=== PATIENT | male | born 1990 | race Hispanic/Latino ===

== ENCOUNTER 2017-11-23 02:02 | Emergency (ER) | payer BC ==
[2017-11-23 02:19] VITALS: PULSE 80
[2017-11-23] MEDS ORDERED: Clindamycin in NS 300 MG/50 ML BAG IVPB STA (02:46)
[2017-11-23 03:31] LABS: BASO # 0.1 K/uL (0.0-0.2); BASO % 0.8 % (0.0-2.0); EOS # 0.3 K/uL (0.0-0.7); LYMPH # 3.2 K/uL (1.0-4.3); LYMPH % 36.2 % (20.0-40.0); MEAN CELL VOLUME 91.9 fl (80.0-94.0); MEAN CORPUSCULAR HEMOGLOBIN 32.9 pg (27.0-31.0); MEAN CORPUSCULAR HGB CONC 35.8 g/dL (33.0-37.0); MEAN PLATELET VOLUME 7.6 fl (7.2-11.7); MONO # 0.6 K/uL (0.0-0.8); MONO % 6.8 % (0.0-10.0); NEUT # 4.7 K/uL (1.8-7.0); NEUT % 53.2 % (50.0-75.0); NRBC % 0.1 % (0.0-0.0); RBC 4.63 Mil/uL (4.40-5.90); RED CELL DISTRIBUTION WIDTH 13.1 % (11.5-14.5); WHITE BLOOD COUNT 8.9 K/uL (4.8-10.8)
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
[2017-11-23 03:58] LABS: ALB/GLOB RATIO 1.5 (1.0-2.1); ALBUMIN 4.6 g/dL (3.5-5.0); ALT/SGPT 73 U/L (21-72); AST/SGOT 50 U/L (17-59); BLOOD UREA NITROGEN 19 mg/dl (9-20); CALCIUM 9.2 mg/dL (8.4-10.2); GFR AFRICAN-AMERICAN > 60; GFR NON-AFRICAN AMERICAN > 60
[2017-11-23 04:19] LABS: SQUAMOUS EPITHIAL < 1 /hpf (0-5); URINE BILIRUBIN NEGATIVE (NEGATIVE); URINE BLOOD NEGATIVE (NEGATIVE); URINE CLARITY CLEAR (Clear); URINE GLUCOSE (UA) NEG (Normal); URINE LEUKOCYTE ESTERASE NEG Leu/uL (Negative); URINE PROTEIN NEGATIVE (NEGATIVE); URINE UROBILINOGEN 0.2-1.0 mg/dL (0.2-1.0)
[2017-11-23 04:29] LABS: URINE COLOR LIGHT YELLOW (YELLOW)
[2017-11-23 04:50] LABS: BARBITURATES, UR NEGATIVE (NEGATIVE); BENZODIAZEPINES, UR NEGATIVE (NEGATIVE); OPIATES, UR NEGATIVE (NEGATIVE); PHENCYCLIDINE, UR NEGATIVE (NEGATIVE)
[2017-11-23 04:59] LABS: HEMOGLOBIN 15.1 g/dL (12.0-18.0)
--- NOTE | 2017-11-23 07:13 | ED PDOC ---
- Laboratory Results Result Diagrams: 11/23/17 02:55 11/23/17 02:55 - ECG O2 Sat by Pulse Oximetry: 95 Medical Decision Making Medical Decision Makinam received pending plastic surgery consult for complicated facial laceration 0841 Dr. Martinez saw patient and performed a laceration repair. He also requested an xeay of the left hand which he interpreted and placed in splint for possible hairline metacarpal fracture. Patient will follow up in Serafin Martinez's office in 5 days. Documented by Марина Kim acting as a scribe for Be Benson III, DO. All medical record entries made by the Scribe were at my direction and personally dictated by me. I have reviewed the chart and agree that the record accurately reflects my personal performance of the history, physical exam, medical decision making, and the department course for this patient. I have also personally directed, reviewed, and agree with the discharge instructions and disposition. Disposition Counseled Patient/Family Regarding: Studies Performed, Diagnosis, Need For Followup - Clinical Impression Clinical Impression: Lip laceration, Head injury, Alcohol intoxication, Hand injury - POA Present On Arrival: None - Disposition Referrals: Benita Martinez MD [Medical Doctor] - Disposition: Routine/Home Disposition Time: 08:41 Condition: STABLE Additional Instructions: Followup with Dr Bartlett on friday as directed. Wear splint until directed otherwise by hand specialist. Return to ER for any worse or new symptoms. Take antibiotics as directed. Prescriptions: Clindamycin [Cleocin] 150 mg PO TID #15 cap Instructions: Laceration Repair, Minor Head Injury Forms: [facility] (Bahamian)
[2017-11-23 08:48] VITALS: BP 119/68; RESP 17; TEMP 98.4; O2SAT 98
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
--- NOTE | 2017-11-23 14:07 | RAD ---
PROCEDURE: Left Hand Radiographs. HISTORY: L hand pain COMPARISON: None. FINDINGS: BONES: Normal. No fracture. JOINTS: Normal. No osteoarthritic changes. SOFT TISSUES: Normal. OTHER FINDINGS: None. IMPRESSION: Normal left hand radiographs.
== END 2017-11-23 08:52 | disposition home or self-care (01) ==
LOC: H.ER 02:02
DX: S01.511A Laceration without foreign body of lip, initial encounter (principal); S09.90XA Unspecified injury of head, initial encounter; F10.129 Alcohol abuse with intoxication, unspecified
CPT/HCPCS: 70450; 70486; 73130; 80053; 81003; 85025; 96365; 99285; G0480